=== PATIENT | male | born 1990 | race Caucasian/White ===

== ENCOUNTER → 2016-11-18 | Outpatient (CLI) | payer OTHER | LOC: M SLEEP 19:41 | PROVIDERS: ATTEND Nurse Practitioner Adult Health | DX: G47.30 Sleep apnea, unspecified (principal) ==

== ENCOUNTER 2017-02-19 19:14 | Emergency (ER) | payer OTHER ==
[~2017-02-19] VITALS: Ht 182.9 cm; Wt 99.8 kg
[2017-02-19 19:22] VITALS: BP 168/97
[2017-02-19] MEDS ORDERED: LUNE1TAB5 PO (19:30)
[2017-02-19] MEDS ORDERED: BUSP10TA PO (19:30)
[2017-02-19] MEDS ORDERED: CONC54TA4 PO (19:30)
[2017-02-19] MEDS ORDERED: NEUR300C PO (19:30)
[2017-02-19] MEDS ORDERED: PRAZ2CAP PO (19:30)
[2017-02-19] MEDS ORDERED: SILD50TA GT (19:30)
[2017-02-19] MEDS ORDERED: LEXA1TAB PO (19:30)
[2017-02-19] MEDS ORDERED: ABIL2TAB2 PO (19:30)
== END 2017-02-19 20:08 | disposition home or self-care (01) ==
LOC: M ED 19:54
DX: Z20.2 Contact with and (suspected) exposure to infections with a predominantly sexual mode of transmission (principal); F17.210 Nicotine dependence, cigarettes, uncomplicated; Z79.899 Other long term (current) drug therapy; H91.93 Unspecified hearing loss, bilateral; F41.9 Anxiety disorder, unspecified; F32.9 Major depressive disorder, single episode, unspecified